=== PATIENT | female | born 1945 | race Caucasian/White ===

== ENCOUNTER → 2016-08-13 | Outpatient (CLI) | payer MEDICARE ==
[~2016-08-13] MED LIST: CALCIUM600 MG PO; LORTAB 5/500 501 TAB PO; THERAPEUTIC VIT1 CAP PO; ZESTRIL 20MG TA20 MG PO; ZOFRAN 4MG T4 MG/TAB PO
== END ==
LOC: MC.RAD 07:40
DX: Z12.31 Encounter for screening mammogram for malignant neoplasm of breast (principal); R92.0 Mammographic microcalcification found on diagnostic imaging of breast

== ENCOUNTER → 2016-12-02 | Outpatient (CLI) | payer MEDICARE ==
[~2016-12-02] MED LIST changes: +NORCO 325 MG-51 TAB PO
== END ==
LOC: COL.RAD 11-26 08:00
DX: M25.511 Pain in right shoulder (principal)
CPT/HCPCS: J3301; Q9967

== ENCOUNTER 2016-12-08 09:53 | Emergency (ER) | payer MEDICARE ==
[~2016-12-08] VITALS: Ht 165.1 cm; Wt 65.9 kg
[~2016-12-08 09:53] MED LIST changes: -NORCO 325 MG-51 TAB PO
[2016-12-08 10:44] LABS: BASO % 0.4 % (0.0-2.0); EOS # 0.1 (0.0-0.7); EOS % 0.7 % (0-4.0); GRAN # 5.7 (1.4-6.5); GRAN % 62.9 % (42.2-75.2); HEMATOCRIT 41.5 % (37.0-47.0); HEMOGLOBIN 14.4 g/dl (12.5-16.0); LYMPH # 2.4 (1.2-3.4); LYMPH % 26.8 % (20.0-51.0); MEAN CELL VOLUME 93 fl (80.0-100.0); MEAN CORPUSCULAR HEMOGLOBIN 32 pg (27.0-31.0); MEAN CORPUSCULAR HGB CONC 35 g/dl (33.0-37.0); MEAN PLATELET VOLUME 9.7 fl (7.4-10.4); MONO # 0.8 (0.1-0.6); MONO % 8.9 % (1.7-9.3); PLATELET COUNT 251 K/mm3 (130-400); RED BLOOD COUNT 4.46 M/mm3 (4.10-5.30); REDCELL DISTRIBUTION WIDTH-CV 13.5 % (11.5-14.5); WHITE BLOOD COUNT 9.1 K/mm3 (4.8-10.8)
[2016-12-08 11:16] LABS: URIC ACID 3.5 mg/dL (2.5-6.2)
[2016-12-08 11:17] LABS: C-REACTIVE PROTEIN < 0.5 mg/dL (0.0-0.9)
[2016-12-08 11:18] LABS: ERYTHROCYTE SEDIMENTATION RATE 1 mm/hr (0-30)
[2016-12-08] MEDS ORDERED: NORCO 325 MG-51 TAB PO (11:45)
[2016-12-08 11:57] VITALS: BP 147/66; PULSE 68; TEMP 97.1
== END 2016-12-08 11:55 | disposition home or self-care (01) ==
LOC: COL.ER 09:53
PROVIDERS: Physician Assistant
DX: M79.672 Pain in left foot (principal); I10 Essential (primary) hypertension; Z98.890 Other specified postprocedural states

== ENCOUNTER 2017-01-24 09:17 | Inpatient (IN) | payer MEDICARE ==
[~2017-01-24] VITALS: Ht 165.1 cm; Wt 63.0 kg
[~2017-01-24 09:17] MED LIST changes: +NORCO 325 MG-51 TAB PO
[2017-02-18] MEDS ORDERED: PRINZIDE 25 MG-1 TAB PO (22:59)
[2017-02-18] MEDS ORDERED: CALCIUM 600MG+D1 TAB PO (22:59)
[2017-02-19] VITALS (13 sets, daily range): BP systolic 118–150; BP diastolic 61–93; PULSE 53–81; TEMP 97.5–98.7
[2017-02-19] MEDS ORDERED: CENTRUM SILVER1 TAB PO (05:54)
[2017-02-20] VITALS: BP 119/62; PULSE 73; TEMP 98
[2017-02-20 04:00] VITALS: BP 115/63; PULSE 70; TEMP 98
[2017-02-20 06:54] LABS: HEMATOCRIT 30.5 % (37.0-47.0); HEMOGLOBIN 10.2 g/dl (12.5-16.0)
[2017-02-20 07:56] VITALS: BP 118/66; PULSE 70; TEMP 97.9
[2017-02-20 11:06] VITALS: BP 105/62; PULSE 75; TEMP 98.7
== END 2017-02-20 14:30 | disposition home or self-care (01) | DRG 483 ==
LOC: JCC 02-19 05:20
PROVIDERS: Orthopaedic Surgery Sports Medicine
PROC: 0RRJ0JZ Replacement of Right Shoulder Joint with Synthetic Substitute, Open Approach (ICD-10-PCS; principal; 2017-02-19 07:30)
DX: M19.011 Primary osteoarthritis, right shoulder (principal); I10 Essential (primary) hypertension
CPT/HCPCS: A9284; C1713; C1776; J0690; J1100; J2250; J2405; J2704; J3010; J7120

== ENCOUNTER → 2017-04-07 | Outpatient (CLI) | payer MEDICARE ==
[~2017-04-07] MED LIST changes: +CALCIUM 600MG+D1 TAB PO; +CENTRUM SILVER1 TAB PO; +PRINZIDE 25 MG-1 TAB PO
== END ==
LOC: COL.RAD 09:00
DX: M25.551 Pain in right hip (principal)
CPT/HCPCS: J3301; Q9967

== ENCOUNTER → 2018-03-11 | Outpatient (CLI) | payer MEDICARE | LOC: COL.LAB 15:38 | DX: Z01.812 Encounter for preprocedural laboratory examination (principal) ==

== ENCOUNTER 2018-03-19 19:17 | Inpatient (IN) | payer MEDICARE ==
[~2018-03-19] VITALS: Wt 75.7 kg
[2018-03-19] MEDS ORDERED: XARELTO10 MG PO (19:44)
[2018-03-19] MEDS ORDERED: NORCO 325 MG-51 TAB PO (19:44)
[2018-03-19] MEDS ORDERED: COLACE 100100 MG/CAP PO (19:45)
[2018-03-19 19:57] LABS: BASO % 0.2 % (0.0-2.0); GRAN # 10.7 (1.4-6.5); GRAN % 81.6 % (42.2-75.2); LYMPH # 1.3 (1.2-3.4); LYMPH % 10.1 % (20.0-51.0); MEAN CELL VOLUME 91 fl (80.0-100.0); MEAN CORPUSCULAR HGB CONC 34 g/dl (33.0-37.0); MEAN PLATELET VOLUME 9.9 fl (7.4-10.4); MONO % 7.6 % (1.7-9.3); PLATELET COUNT 264 K/mm3 (130-400); REDCELL DISTRIBUTION WIDTH-CV 13.6 % (11.5-14.5)
[2018-03-19 20:12] LABS: ALANINE AMINOTRANSFERASE 23 U/L (9-52); ALBUMIN 3.2 gm/dL (3.5-5.0); ALKALINE PHOSPHATASE 67 U/L (50-136); ANION GAP 7 mmol/L (7-16); AST,SGOT 36 U/L (15-37); BILIRUBIN,TOTAL 0.6 mg/dL (0.0-1.0); BLOOD UREA NITROGEN 44 mg/dL (7-17); CALCIUM 8.6 mg/dL (8.4-10.2); CARBON DIOXIDE 27 mmol/L (22-30); CHLORIDE 95 mmol/L (98-107); GLUCOSE 126 mg/dL (74-106); LIPASE 47 U/L (23-300); POTASSIUM 4.4 mmol/L (3.4-5.0); SODIUM 128 mmol/L (137-145)
[2018-03-19 20:18] LABS: HEMATOCRIT 27.4 % (37.0-47.0); HEMOGLOBIN 9.2 g/dl (12.5-16.0); MEAN CORPUSCULAR HEMOGLOBIN 31 pg (27.0-31.0)
[2018-03-19 20:21] LABS: INR 1.3 (0.8-3.0); PROTHROMBIN TIME 14.7 SECONDS (9.7-12.8)
[2018-03-19 20:23] LABS: TROPONIN-I < 0.012 ng/mL (0.000-0.034)
[2018-03-19] MEDS ORDERED: COREG 25MG25 MG/TAB PO ×2 (21:29)
[2018-03-19] MEDS ORDERED: NEURONTIN600 MG/TAB PO ×2 (21:29)
[2018-03-19 22:02] LABS: COLLECTION METHOD CATHETER
[2018-03-19 22:07] LABS: PH 5 (5-8); SQUAMOUS EPITHELIAL None Seen /hpf; URINE APPEARANCE Clear; URINE BACTERIA None Seen /hpf; URINE BILIRUBIN Negative (NEGATIVE); URINE BLOOD Negative (NEGATIVE); URINE COLOR Straw; URINE GLUCOSE Negative (NEGATIVE); URINE KETONE Trace (NEGATIVE); URINE LEUKOCYTE ESTERASE Negative (NEGATIVE); URINE NITRATE Negative (NEGATIVE); URINE PROTEIN(semi-quant) Negative (NEGATIVE); URINE RBC 0-2 /hpf; URINE UROBILINOGEN Negative (NEGATIVE)
[2018-03-19 23:53] LABS: HEMOGLOBIN 5.7 g/dl (12.5-16.0)
[2018-03-19 23:55] LABS: HEMATOCRIT 17.1 % (37.0-47.0)
[2018-03-20] VITALS (1283 sets, daily range): BP systolic 76–118; BP diastolic 50–71; PULSE 82–113; TEMP 97.5–98.8; O2SAT 71–100
--- NOTE | 2018-03-20 00:35 | NUR ---
Pt report received from Alba in ED.
--- NOTE | 2018-03-20 01:30 | NUR ---
Pt arrived via stretcher assisted by ED nurse Alba YING with personal belongings and . took home pts glasses "to clean and will bring them back in the morning." also reported that pts walker was in the car and will bring that in when returns in the morning. Pt was assisted X3 staff members in slide transfer onto bed in ICU01.
--- NOTE | 2018-03-20 04:30 | NUR ---
Pt assessment complete. Pt is currently resting in bed. Will notify staff with need to use the bed moreno. Complaints of nausea although no vomitting. Continues to report feeling of phlem in the back of the throat with no resolution since admission onto the unit. [place]/ black liquid stools continue intermittently. Pt continues to deny ability to void although states "will keep trying". Ice pack applied to left leg due to reported pain.
[2018-03-20 05:02] LABS: BASO % 0.1 % (0.0-2.0); EOS % 0.1 % (0-4.0); GRAN # 6.4 (1.4-6.5); GRAN % 66.5 % (42.2-75.2); HEMATOCRIT 22.4 % (37.0-47.0); HEMOGLOBIN 7.6 g/dl (12.5-16.0); LYMPH # 2.1 (1.2-3.4); LYMPH % 22.1 % (20.0-51.0); MEAN CELL VOLUME 91 fl (80.0-100.0); MEAN CORPUSCULAR HEMOGLOBIN 31 pg (27.0-31.0); MEAN CORPUSCULAR HGB CONC 34 g/dl (33.0-37.0); MEAN PLATELET VOLUME 9.9 fl (7.4-10.4); MONO % 10.8 % (1.7-9.3); RED BLOOD COUNT 2.47 M/mm3 (4.10-5.30); REDCELL DISTRIBUTION WIDTH-CV 13.3 % (11.5-14.5)
[2018-03-20 05:03] LABS: PLATELET COUNT 152 K/mm3 (130-400)
--- NOTE | 2018-03-20 05:12 | NUR ---
Pt pressed the call light requesting to sit on the bedpan. Right after nurse entered into the room pt started to cry stating "Im sad. I have just been through so much." Nurse asked if there was anything that could be done in order to help at this time following the statement of "Sorry your going through all of this." Pt asked for nurse to hold her hand. Nurse held pts hand for a few moments until pt stated that nurse would be called when needing to get off the bedpan.
[2018-03-20 05:16] LABS: CALCIUM 6.9 mg/dL (8.4-10.2); CREATININE, serum 0.49 mg/dL (0.52-1.25); POTASSIUM 4.1 mmol/L (3.4-5.0)
--- NOTE | 2018-03-20 06:50 | NUR ---
Pt was assisted to Endo via [facility] YING for Upper GI via stretcher and NS @ 150/ml
--- NOTE | 2018-03-20 07:15 | NUR ---
Report received from Leanna YING and care resumed.
--- NOTE | 2018-03-20 07:54 | NUR ---
Pt arrived from Endo via RN on stretcher to ICU01
[2018-03-20 09:55] LABS: HEMATOCRIT 22.4 % (37.0-47.0); HEMOGLOBIN 7.5 g/dl (12.5-16.0)
--- NOTE | 2018-03-20 10:11 | NUR ---
Initial visit; Patient and son thanked Seo Team Lead for looking in on her and offering comfort, encouragement and prayer. Pe request, Seo Team Lead contacted patient's alevism home leaving information regarding Sylwia being hospitalized again following surgical procedure and having been discharged.
--- NOTE | 2018-03-20 10:50 | NUR ---
Dr Gordon in to see pt this time. New orders received. Will continue to follow,
--- NOTE | 2018-03-20 11:20 | NUR ---
Plan is to return home with outpatient PT when time comes unless otherwise specified by PA. SW met with patient in room with and DTR at her side. Pt gave verbal permission to talk infront of her family. Marcos is primary contact . PT reports they have a living will. Patient reports that use of a walker everyday for the next four weeks. RX is from [facility] in [place]. Tru Martinez and Dr. Garcia names as PCP. SW will continue to follow care for any needs that arise.
--- NOTE | 2018-03-20 12:07 | NUR ---
Dr Chan in to see pt at this time.
--- NOTE | 2018-03-20 12:20 | NUR ---
Pt taking clear liquids and tolerating well at this time. No nausea, complaints of pain. VS remain stable. Will continue to follow.
--- NOTE | 2018-03-20 14:22 | NUR ---
Pt remains resting quietly at this time. Family has been at bedside and updated on plan of care. Questions answered. Will continue to follow.
--- NOTE | 2018-03-20 14:59 | NUR ---
Dr Gordon back in to check on pt at this time.
[2018-03-20 15:25] LABS: HEMATOCRIT 17.6 % (37.0-47.0)
--- NOTE | 2018-03-20 17:17 | NUR ---
Family voicing concerns about GI not being available and questioning if pt should be transfered to another facility. Dr Gordon on unit and came to speak with family. Will place surgical consult and follow up at this time.
--- NOTE | 2018-03-20 18:27 | NUR ---
Dr Nuñez here to see pt. Regi with hosptialist was updated on family's concerns regarding headache and possible brain bleed and whether a CT should be done. She states will review pt.
--- NOTE | 2018-03-20 19:19 | NUR ---
Report given to Guillermina YING and care transfered.
--- NOTE | 2018-03-20 22:03 | NUR ---
UPON ASSESSMENT PT C/O 6/10 PAIN ON LEFT HIP DESCRIBED DULL OCCURING INTERMITTENTLY ONLY WITH MOVEMENT. PT DENIES OFFER PAIN MEDS. PTS LEFT THIGH SLIGHTLY LARGER THAN RIGHT. LEFT THIGH HAS SIGNIFICANTLY MORE VERICOSE VEINS THAN RIGHT, PT STATES THAT IS NORMAL. PT HAS BANDAGE OVER SURGICAL SIGHT ON LEFT HIP. BRUISING IS APPEARENT AROUND BANDAGE. 2100: PT BEGAN BOWEL PREP FOR 03/21 COLONOSCOPY 2139: PT UP TO BEDSIDE COMMODE. PT STEADY ON FEET. PT HAD SMALL BLOODY/LIQUID STOOL. 2199: PT BACK TO BED AND ONCE IN BED C/O LEFT LEG CRAMP DISTAL TO SURGICAL SITE. PILLOW PROPED UNDER LEFT LEG PER PT COMFORT, AND ALLEVIATED PT CRAMP.
[2018-03-20 22:32] LABS: HEMATOCRIT 18.4 % (37.0-47.0); HEMOGLOBIN 6.4 g/dl (12.5-16.0)
--- NOTE | 2018-03-20 23:04 | NUR ---
Hospitalist notified of H/H lab values.
--- NOTE | 2018-03-20 23:43 | NUR ---
Consent for tomorrows procedure/colonoscopy completed.
[2018-03-21] VITALS (1283 sets, daily range): BP systolic 93–114; BP diastolic 52–77; PULSE 75–92; TEMP 98–99.1; O2SAT 64–100
--- NOTE | 2018-03-21 03:19 | NUR ---
TRANSFUSION COMPLETE. NO REACTIONS.
--- NOTE | 2018-03-21 04:00 | NUR ---
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 BARRIER CREAM APPLIED TO PT'S BOTTOM DUE TO STOOL INCONTINENCE. ENCARNACION STAT LOCK REMOVED DUE TO BEING SOILED AND UNDERNEATH STAT LOCK WAS REDDENED SKIN PARTIAL EDGE FROM WHERE STAT LOCK WAS PLACED. AREA CLEANED AND OPEN TO AIR.
[2018-03-21 04:36] LABS: HEMATOCRIT 23.2 % (37.0-47.0)
[2018-03-21 04:49] LABS: CALCIUM 7.4 mg/dL (8.4-10.2); CREATININE, serum 0.36 mg/dL (0.52-1.25); POTASSIUM 3.6 mmol/L (3.4-5.0)
--- NOTE | 2018-03-21 07:05 | NUR ---
Bedside report received from STEPAN Sarmiento. Care of patient assumed at this time.
--- NOTE | 2018-03-21 07:58 | NUR ---
Patient assessment complete. Patient is resting in bed. States she has a slight headache but no pain apart from that. Patient is alert and oriented. No concerns at this time. PACU nurses here to take patient to colonoscopy. Patient transported by bed, leaves ICU at this time.
--- NOTE | 2018-03-21 08:50 | NUR ---
Patient returns from colonoscopy. Patient is drowsy but correctly answers orientation questions. Patient resting in bed at this time. Will closely monitor.
[2018-03-21 10:33] LABS: HEMATOCRIT 21.6 % (37.0-47.0); HEMOGLOBIN 7.5 g/dl (12.5-16.0)
--- NOTE | 2018-03-21 12:00 | NUR ---
Patient resting in bed at this time. Patient was able to sleep this morning following colonoscopy. Patient complains of some headache. Family at bedside. Patient helped out of bed and to chair with gait belt and wheelchair. Patient reports some stiffness in left hip but ambulates well, gait somewhat unsteady due to recent hip surgery. Will continue to monitor.
--- NOTE | 2018-03-21 16:00 | NUR ---
Patient resting in bed. Patient family at bedside. Patient denies any pain at this time. Will continue to monitor.
--- NOTE | 2018-03-21 18:10 | NUR ---
Patient up in chair at this time eating dinner. Patient moves to chair with gait belt and walker and the assistance of this nurse. Vital signs remain stable. Will continue to monitor.
--- NOTE | 2018-03-21 19:21 | NUR ---
Bedside report given to STEPAN Leigh.
--- NOTE | 2018-03-21 20:00 | NUR ---
Shift assessment complete at this time. Plan of care reviewed at bedside with patient. Additional time taken to address any other needs or concerns. Denies pain or any other discomfort. Will continue to monitor.
[2018-03-21 21:48] LABS: HEMATOCRIT 21.5 % (37.0-47.0); HEMOGLOBIN 7.3 g/dl (12.5-16.0)
[2018-03-22] VITALS (723 sets, daily range): BP systolic 96–147; BP diastolic 52–79; PULSE 58–92; TEMP 97.9–98.5; O2SAT 65–100
--- NOTE | 2018-03-22 | NUR ---
Pt sleeping comfortably in bed. Denies pain or any other discomfort. Vitals stable at this time. Will continue to monitor.
--- NOTE | 2018-03-22 04:00 | NUR ---
Pt sleeping comfortably in bed. Denies pain or any other complaints. Vitals stable at this time. Will continue to monitor.
--- NOTE | 2018-03-22 07:00 | NUR ---
BEDSIDE REPORT RECEIVED FROM STEPAN DE SANTIAGO. PATIENT SITTING UP IN RECLINER WITH NO C/O. VS WNL. PLAN OF CARE DISCUSSED. CARE TAKEN OVER AT THIS TIME
--- NOTE | 2018-03-22 07:25 | NUR ---
Bedside report given to STEPAN Early.
[2018-03-22 10:22] LABS: HEMATOCRIT 24.5 % (37.0-47.0); HEMOGLOBIN 8.3 g/dl (12.5-16.0)
--- NOTE | 2018-03-22 11:46 | NUR ---
DR. PALACIO ROUNDS AT THIS TIME
--- NOTE | 2018-03-22 12:22 | NUR ---
REPORT CALLED TO STEPAN PIMENTEL ON MEDICAL FLOOR. PLAN OF CARE DISCUSSED. WILL TRANSFER UP TO ROOM 316 SOON.
--- NOTE | 2018-03-22 14:31 | NUR ---
Arrived to medical unit accompanied by son and ICU nurse via wheelchair. Transferred into bed and assessed. Complained of level 4 pain to left hip, but denies wanting PRN analgesic. Encouraged to let martha know as soon as she is wanting to take anything for pain, and voiced understanding. Aquacell dressing to left hip is CDI. Surrounding skin with bruisnig and swelling present. Concerned about DVT to left leg related to swelling. LLE with 2+ edema. SCDs applied to BLE. Physician is aware. Pedal pulses present and equal bilaterally. Ultrasound is scheduled for tomorrow.
--- NOTE | 2018-03-22 16:08 | NUR ---
Indwelling longoria catheter removed per orders. Patient tolerated well.
--- NOTE | 2018-03-22 18:24 | NUR ---
Pt rested well after arriving to the floor. Ambulated in the halls with assistance of one and walker. Incision to L hip CDI. Some swelling to L leg, venous doppler to be done tomorrow, discussed this with patient. Pt has urinated after longoria removal. Denies needs at this time. Call light within reach.
--- NOTE | 2018-03-22 20:25 | NUR ---
Shift assessment complete. Pt resting in bed, awake, a&o, cooperative c cares. Pt reports chronic pain to LLE, PRN APAP provided per pt request. Pt denies any other c/o. PICC patent c good blood return. Pt s needs. Call light in reach, will monitor.
[2018-03-22 22:44] LABS: HEMATOCRIT 22.1 % (37.0-47.0); HEMOGLOBIN 7.7 g/dl (12.5-16.0)
[2018-03-23 02:53] VITALS: BP 122/63; PULSE 83; TEMP 98.6
[2018-03-23 06:10] LABS: HEMATOCRIT 22.7 % (37.0-47.0); HEMOGLOBIN 7.6 g/dl (12.5-16.0)
[2018-03-23 07:02] VITALS: BP 154/71; PULSE 83; TEMP 98.9
--- NOTE | 2018-03-23 07:59 | NUR ---
Assessed at this time. Upon entering room, patient sitting up in chair with legs elevated. Denies having pain at rest, does state she continues to have pain with movement. Declines wanting PRN analgesic. Alert and oriented x 4. Pleasant mood. Edema continues to LLE. Aquacell dressing to left hip incision is CDi. Surrounding skin continues to have yellow bruising. 1+ edema continues to LLE. Pedal pulses are present and equal bilaterally. No redness or warmth noted to LLE. Complained of feeling bloated. Abdomen is round, soft, and non-tender. Bowel sounds active x 4. Denies pain and disocmfort with palpation. Voiced that she has had 3 small bowel movements since yesteday evening. Denies feeling constipated. Voices that she is passing gas. PICC to RUE. Area is without redness, warmth, and swelling. Denies pain and discomfort to area. Patient scheduled to have doppler today to check for DVT. Reminded patient of this. Hemoglobin 7.6 this morning. Denies having dizzyness. Continues to be in chair at this time. Encouraged foot pumps. Calling for breakfast. Call light and phone is within reach.
[2018-03-23 08:14] LABS: CALCIUM 7.9 mg/dL (8.4-10.2); CREATININE, serum 0.42 mg/dL (0.52-1.25)
[2018-03-23 11:27] VITALS: BP 143/70; PULSE 94; TEMP 98.3
--- NOTE | 2018-03-23 12:17 | NUR ---
First visit from the foreign banknote teller trader. prayed with patient. No other needs right now.
--- NOTE | 2018-03-23 14:20 | NUR ---
Resident complaining of feelings of urinary frequency, urgency, retention, and burning with urination. Spoke with Dr. Muñiz, and order received to obtain UA. Resident voided 100mls of urine, specimen obtained and sent to lab. Bladder scan completed after voiding, with <50mls of urine retained. Awaiting UA results at this time. Assisted back to bed as requested. Ice pack to left hip. Complains of level 4 pain with movement, but denies at rest. Declines wanting PRN [place] at this time, but states she may want it at bedtime. Encouraged to let nurse know when she wants to take it. Resting in bed watching TV at this time. at bedside. SCD's are on. Call light and phone are within reach.
[2018-03-23 14:24] LABS: BASO # 0.1 (0.0-0.2); BASO % 0.4 % (0.0-2.0); EOS # 0.2 (0.0-0.7); EOS % 1.4 % (0-4.0); GRAN # 8.1 (1.4-6.5); GRAN % 66.7 % (42.2-75.2); LYMPH # 2.5 (1.2-3.4); LYMPH % 20.5 % (20.0-51.0); MEAN CELL VOLUME 93 fl (80.0-100.0); MEAN CORPUSCULAR HGB CONC 34 g/dl (33.0-37.0); MEAN PLATELET VOLUME 9.1 fl (7.4-10.4); MONO # 1.3 (0.1-0.6); MONO % 10.3 % (1.7-9.3); PLATELET COUNT 232 K/mm3 (130-400); RED BLOOD COUNT 2.58 M/mm3 (4.10-5.30); REDCELL DISTRIBUTION WIDTH-CV 14.5 % (11.5-14.5)
[2018-03-23 14:25] LABS: HEMATOCRIT 23.9 % (37.0-47.0); HEMOGLOBIN 8.2 g/dl (12.5-16.0); MEAN CORPUSCULAR HEMOGLOBIN 32 pg (27.0-31.0)
[2018-03-23 14:38] LABS: COLLECTION METHOD CLEAN CATCH
[2018-03-23 14:56] LABS: BUDDING YEAST Present /hpf; MUCOUS Present /lpf; PH 5 (5-8); SQUAMOUS EPITHELIAL 0-2 /hpf; URINE APPEARANCE Hazy; URINE BACTERIA None Seen /hpf; URINE BILIRUBIN Negative (NEGATIVE); URINE BLOOD 2+ (NEGATIVE); URINE COLOR Yellow; URINE GLUCOSE Negative (NEGATIVE); URINE KETONE Negative (NEGATIVE); URINE LEUKOCYTE ESTERASE 3+ (NEGATIVE); URINE NITRATE Negative (NEGATIVE); URINE PROTEIN(semi-quant) Negative (NEGATIVE); URINE RBC >50 /hpf; URINE UROBILINOGEN Negative (NEGATIVE); URINE WBC >50 /hpf
--- NOTE | 2018-03-23 16:08 | NUR ---
SW attended clinical rounding and met with patient after to discuss discharge planning. Patient is worried about returning home as she feels weak and is struggling with moving her leg. SW talked with her about the different options for skilled vs rehab and left a chioce form as she wants to discuss with her . Nurse brought out the choice form signed by patient with [facility] on there. SW faxed referral to [facility]. DANETTE will continue to follow.
[2018-03-23 16:36] VITALS: BP 128/61; PULSE 86; TEMP 98.5
--- NOTE | 2018-03-23 18:37 | NUR ---
Patient sitting up in recliner eatting dinner. Reports pain is at a 3, and declines analgesic at this time. Spoke with Dr. Muñiz regarding UA. No new orders at this time. Updated patient. Voices no conerns at this time. Call light and phone are within reach. Encouraged to call when done eatting to go on a walk as requested.
[2018-03-23 20:10] VITALS: BP 134/60; PULSE 95; TEMP 98.2
--- NOTE | 2018-03-23 21:45 | NUR ---
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 [place] x1 administered for reported pain. PT denied further needs at time of assistance to bed; Call light in reach and will continue to monitor. CDA
[2018-03-24 00:18] VITALS: BP 117/59; PULSE 85; TEMP 98.9
[2018-03-24 04:22] VITALS: BP 128/72; PULSE 85; TEMP 98.7
[2018-03-24 06:21] LABS: BASO # 0.1 (0.0-0.2); BASO % 0.5 % (0.0-2.0); EOS # 0.3 (0.0-0.7); EOS % 2.4 % (0-4.0); GRAN # 6.1 (1.4-6.5); LYMPH # 3.2 (1.2-3.4); LYMPH % 30.1 % (20.0-51.0); MEAN CELL VOLUME 95 fl (80.0-100.0); MEAN CORPUSCULAR HGB CONC 33 g/dl (33.0-37.0); MEAN PLATELET VOLUME 9.6 fl (7.4-10.4); MONO % 9.6 % (1.7-9.3); PLATELET COUNT 261 K/mm3 (130-400); RED BLOOD COUNT 2.55 M/mm3 (4.10-5.30); REDCELL DISTRIBUTION WIDTH-CV 14.9 % (11.5-14.5)
--- NOTE | 2018-03-24 06:22 | NUR ---
PT toileted multiple times throughout night; PT able to AMB using walker and SBA. PT reported pain to left hip; post op hip replacement from 03/13/[address]; Clean, dry, and intact. PT provided ice, [place], and repositioning for successful relief of pain. PT denied further needs at time of exit; Call light placed within reach. CDA
[2018-03-24 06:28] LABS: HEMATOCRIT 24.3 % (37.0-47.0); HEMOGLOBIN 7.9 g/dl (12.5-16.0); MEAN CORPUSCULAR HEMOGLOBIN 31 pg (27.0-31.0)
[2018-03-24 06:42] LABS: CALCIUM 8.1 mg/dL (8.4-10.2); CREATININE, serum 0.42 mg/dL (0.52-1.25); POTASSIUM 3.8 mmol/L (3.4-5.0)
[2018-03-24 07:34] VITALS: BP 114/72; PULSE 81; TEMP 98.1
--- NOTE | 2018-03-24 08:46 | NUR ---
Patient assessed. Denies having nausea and upset stomach. Reports bloating feeling continues, but has decreased in comparison to yesterday morning. Denies having pain and discomfort at this time. Ambulated to and from bathroom with one assist with gait belt and walker. Gait is more steady than yesterday, but continues to be slightly hesitant to put full weight on left hip. Continues to complain of urinary frequency and urgency. Assisted to chair as requested. Call light and phone are within reach.
--- NOTE | 2018-03-24 11:18 | NUR ---
Follow-up visit; Offered prayer and God's blessings. Patient was receptive to Staff Counsel's visit.
[2018-03-24 11:40] VITALS: BP 114/72; PULSE 81; TEMP 98.1
[2018-03-24] MEDS ORDERED: ASPI325T6 PO (11:41)
[2018-03-24] MEDS ORDERED: PROTONIX 40MG T40 MG PO (11:42)
[2018-03-24] MEDS ORDERED: NORCO 325 MG-51 TAB PO (11:42)
--- NOTE | 2018-03-24 12:23 | NUR ---
Aquacell dressing removed from left hip area per orders. Patient tolerated well. Area is without redness, warmth, and drainage. Surrounding skin continues to have bruising. PICC removed from [facility], pressure dressing applied. Assisted to the bathroom afterwards, and into wheelchair from [facility] lunchroom aide. Resident discharged at this time. Smiling and thankful for care. Called report to [facility], nurse Avalos. Told them not to remove pressure dressing to [facility] for 24hours, and not to submerge in water for 2 weeks, or until follow-up ortho appt.
--- NOTE | 2018-03-24 13:11 | NUR ---
Patient was accepted to [facility] for skilled placement. They want PU by noon today. DANETTE talked with nurse and Dr and arranged transport for noon. DANETTE presented IM and verbally discussed the contents. She was agreeable and signed the form. DANETTE faxed discharge orders to [facility] Patient discharging today, 03/24/18, to [facility] for skilled placement prior to returning home with spouse.
[2018-03-24 15:15] LABS: HELICOBACTER PYLORI STOOL AG Negative (Negative)
== END 2018-03-24 12:30 | DRG 378 ==
LOC: COL.ER 19:17 → ICU 03-20 00:18 → MEDICAL 03-22 13:19
PROVIDERS: Emergency Medicine; Internal Medicine; Internal Medicine Gastroenterology; Nurse Practitioner Family; Physician Assistant; Surgery; ADMIT Family Medicine
PROC: 0DJ08ZZ Inspection of Upper Intestinal Tract, Via Natural or Artificial Opening Endoscopic (ICD-10-PCS; principal; 2018-03-20 06:30)
PROC: 0DJ08ZZ Inspection of Upper Intestinal Tract, Via Natural or Artificial Opening Endoscopic (ICD-10-PCS; 2018-03-21)
PROC: 0DJD8ZZ Inspection of Lower Intestinal Tract, Via Natural or Artificial Opening Endoscopic (ICD-10-PCS; 2018-03-21 08:00)
DX: K26.4 Chronic or unspecified duodenal ulcer with hemorrhage (principal); D62 Acute posthemorrhagic anemia; E87.1 Hypo-osmolality and hyponatremia; E87.2 Acidosis; I10 Essential (primary) hypertension; Z96.642 Presence of left artificial hip joint; E86.0 Dehydration; R33.9 Retention of urine, unspecified
CPT/HCPCS: 99223-AI; 99233-AI; 99239; A9284; C1751; C9113; C9132; J2250; J2405; J2543; J2704; J3010; J7030; P9016; Q9967

== ENCOUNTER → 2019-03-22 | Outpatient (CLI) | payer MEDICARE ==
[~2019-03-22] MED LIST changes: +ASPI325T6 PO; +COLACE 100100 MG/CAP PO; +COREG 25MG25 MG/TAB PO; +NEURONTIN600 MG/TAB PO; +PROTONIX 40MG T40 MG PO; +XARELTO10 MG PO
== END ==
LOC: MC.RAD 07:42
DX: Z12.31 Encounter for screening mammogram for malignant neoplasm of breast (principal)

== ENCOUNTER → 2020-06-06 | Outpatient (CLI) | payer MEDICARE | LOC: MC.RAD 08:02 | DX: Z12.31 Encounter for screening mammogram for malignant neoplasm of breast (principal) ==

== ENCOUNTER → 2021-01-02 | Outpatient (CLI) | payer MEDICARE | LOC: COL.RAD 12-29 09:45 | DX: R10.11 Right upper quadrant pain (principal) ==

== ENCOUNTER → 2021-04-18 | Outpatient (CLI) | payer MEDICARE | LOC: COL.VAS 08:56 | DX: Z47.1 Aftercare following joint replacement surgery (principal); Z96.651 Presence of right artificial knee joint ==

== ENCOUNTER → 2023-12-26 | Outpatient (CLI) | payer MEDICARE | LOC: COL.RAD 06:55 | DX: R10.13 Epigastric pain (principal) ==